=== PATIENT | female | born 1995 | race American Indian/Alaskan Native ===

== ENCOUNTER 2017-09-20 13:01 | Emergency (ER) | payer OTHER ==
[2017-09-20 13:14] VITALS: TEMP 98; O2SAT 99
--- NOTE | 2017-09-20 13:43 | ED PDOC ---
HPI: CCC, URI, Sore Throat Time Seen by Provider: 09/20/17 13:15 Chief Complaint (Nursing): ENT Problem Chief Complaint (Provider): Sore Throat, Cough, Nasal Congestion History Per: Patient History/Exam Limitations: no limitations Current Symptoms Are (Timing): Still Present Additional Complaint(s): Lynn is a 21 y/o female who presents to the ED complaining of a sore throat, dry cough, and stuffy nose x3 days. She has been taking Tylenol with minimal relief - last dose was at 8am today. Patient denies fever, ear pain, nausea, vomiting, chest pain, urinary symptoms, or abdominal pain. She has had no recent travel or sick contacts. PMD: None Provided LMP: ~2 weeks ago Past Medical History Reviewed: Historical Data, Nursing Documentation, Vital Signs Vital Signs: Last Vital Signs Temp 98 F 09/20/17 14:45 Pulse 78 09/20/17 14:45 Resp 18 09/20/17 14:45 BP 129/70 09/20/17 14:45 Pulse Ox 99 09/20/17 14:45 - Medical History PMH: No Chronic Diseases - Surgical History Surgical History: No Surg Hx - Family History Family History: States: Unknown Family Hx - Social History Current smoker - smoking cessation education provided: No Alcohol: None Drugs: Cannabis (occasional) - Home Medications Home Medications: Ambulatory Orders Medication Instructions Recorded Ibuprofen [Motrin Tab] 600 mg PO Q6 PRN #20 tab 09/20/17 Promethazine DM [Phenergan DM 5 ml PO Q6 PRN #150 ml 09/20/17 Syrup] - Allergies Allergies/Adverse Reactions: Allergies Allergy/AdvReac Type Severity Reaction Status Date / Time No Known Allergies Allergy Verified 09/20/17 13:13 Review of Systems ROS Statement: Except As Marked, All Systems Reviewed And Found Negative Constitutional: Negative for: Fever ENT: Positive for: Nose Congestion, Throat Pain. Negative for: Ear Pain Cardiovascular: Negative for: Chest Pain Respiratory: Positive for: Cough Gastrointestinal: Negative for: Nausea, Vomiting, Abdominal Pain Physical Exam - Reviewed Nursing Documentation Reviewed: Yes Vital Signs Reviewed: Yes - Physical Exam Appears: Positive for: Well, Non-toxic, No Acute Distress Head Exam: Positive for: ATRAUMATIC, NORMOCEPHALIC Skin: Positive for: Warm, Dry Eye Exam: Positive for: EOMI, PERRL ENT: Positive for: Pharynx Is (clear, uvula midline), TM Is/Are (nonerythematous , nonbulging bilaterally), Nasal Congestion (clear rhinorrhea), Pharyngeal Erythema. Negative for: Tonsillar Exudate, Tonsillar Swelling Neck: Positive for: Painless ROM, Supple Cardiovascular/Chest: Positive for: Regular Rate, Rhythm. Negative for: Murmur Respiratory: Positive for: Normal Breath Sounds (speaking in full sentences, respirations even and nonlabored). Negative for: Decreased Breath Sounds, Accessory Muscle Use, Respiratory Distress Gastrointestinal/Abdominal: Positive for: Soft. Negative for: Tenderness, Mass , Distended, Guarding, Rebound Back: Negative for: L CVA Tenderness, R CVA Tenderness Extremity: Negative for: Deformity Neurologic/Psych: Positive for: Alert, Oriented (x3), Mood/Affect (appropriate) , Gait (steady in ED) - ECG O2 Sat by Pulse Oximetry: 99 (RA) Pulse Ox Interpretation: Normal Medical Decision Making Medical Decision Making: Time: 13:16 Initial Impression: Pharyngitis, Cough Initial Plan: --Rapid Strep --Motrin Rapid Strep: Negative On re-evaluation, patient reports improvement of symptoms. On exam, patient remains AAOx3, in no acute distress. On exam, neck is supple, lungs CTA, cardiac RRR, abdomen is soft and non-tender, neuro exam shows no focal findings. VSS. Diagnostic results d/w the patient in great detail. Dx of viral pharyngitis, cough d/w the patient. Based on history, exam and diagnostic results plan will be for discharge and outpatient follow up. Advised to follow up with primary care physician/clinic in 1-2 days without fail. Advised to take medication as prescribed. Return to the emergency room at any time for any new or worsening symptoms. Patient states she fully agrees with and understands discharge instructions. States that she agrees with the plan and disposition. Verbalized and repeated discharge instructions and plan. I have given the patient opportunity to ask any additional questions. Scribe Attestation: Documented by Devon Baron, acting as a scribe for Madyson Stuart PA-C Provider Scribe Attestation: All medical record entries made by the Scribe were at my direction and personally dictated by me. I have reviewed the chart and agree that the record accurately reflects my personal performance of the history, physical exam, medical decision making, and the department course for this patient. I have also personally directed, reviewed, and agree with the discharge instructions and disposition. Disposition - Clinical Impression Clinical Impression: Cough, Viral pharyngitis - Patient ED Disposition Is Patient to be Admitted: No Counseled Patient/Family Regarding: Studies Performed, Diagnosis, Need For Followup, Rx Given - Disposition [facility]errals: [facility] [Outside] Disposition: Routine/Home Disposition Time: 14:34 Condition: STABLE Prescriptions: Ibuprofen [Motrin Tab] 600 mg PO Q6 PRN #20 tab PRN Reason: Pain, Moderate (4-7) Promethazine DM [Phenergan DM Syrup] 5 ml PO Q6 PRN #150 ml PRN Reason: cough, congestion Instructions: Viral Pharyngitis, Cough in Adults, Sore Throat in Adults Forms: [employer] (Chadian) Print Language: NEPALI - POA Present On Arrival: None Results - Lab Results Lab Results: 09/20/17 14:01 Grp A Beta Strep Ag Negative
[2017-09-20 14:46] VITALS: BP 129/70; PULSE 78; RESP 18
== END 2017-09-20 14:45 | disposition home or self-care (01) ==
LOC: H.ER 13:01
DX: J02.9 Acute pharyngitis, unspecified (principal); R05 Cough